=== PATIENT | female | born 1955 | race Caucasian/White ===

== ENCOUNTER 2021-01-02 12:32 | Outpatient (REF) | payer OTHER, SELFPAY ==
[2021-01-02 13:37] LABS: MANUAL DIFF FLAG NO
[2021-01-02 13:45] LABS: Basophils Absolute Auto 0.1 X10*3/uL (0.0-0.2); Basophils Percent Auto 1.2 % (0-2); Eosinophils Absolute Auto 0.1 X10*3/uL (0.0-0.4); Eosinophils Percent Auto 1.1 % (0-4); Hemoglobin 13.3 g/dl (12.0-16.0); Imm Gran Abs Auto 0.02 X10*3/uL (0.00-0.03); Imm Gran Pct Auto 0.3 % (0.0-0.4); Lymphocytes Absolute Auto 2.4 X10*3/uL (1.2-4.9); Lymphocytes Percent Auto 31.4 % (20-40); Mean Corpuscular HGB Conc 32.4 g/dl (31.0-35.0); Mean Corpuscular Hemoglobin 29.7 pg (27.0-33.0); Mean Corpuscular Volume 91.5 fL (80-98); Mean Platelet Volume 11.7 fL (9.4-12.3); Monocytes Absolute Auto 0.5 X10*3/uL (0.1-1.2); Monocytes Percent Auto 6.9 % (2-11); Neutrophils Absolute Auto 4.5 X10*3/uL (2.0-8.3); Neutrophils Percent Auto 59.1 % (45-73); Platelet Count 241 X10*3/uL (160-400); Red Blood Count 4.48 X10*6/uL (4.20-5.50); Red Cell Distribution Width 11.9 % (11.0-16.0); White Blood Count 7.5 X10*3/uL (4.8-10.8)
[2021-01-02 14:17] LABS: Alanine Aminotransferase 9 U/L (0-31); Alkaline Phosphatase 67 U/L (39-117); Anion Gap 14 (12-20); Aspartate Amino Transferase 16 U/L (5-31); Bilirubin Direct 0.3 mg/dL (0.0-0.5); Bilirubin Total 1.1 mg/dL (0.0-1.0); Blood Urea Nitrogen 16 mg/dL (9-16); Calcium 9.4 mg/dL (8.4-10.2); Carbon Dioxide 26 mmol/L (22-29); Chloride 105 mmol/L (96-108); Estimated Glomerular Filt Rate 59; Potassium 4.5 mmol/L (3.3-5.1); Sodium 140 mmol/L (135-145); Total Protein 7.3 g/dL (6.5-8.0)
[2021-01-02 14:38] LABS: TSH reflex Free T4 0.89 uIU/mL (0.32-4.0)
[2021-01-07 20:46] LABS: Immunoglobulin A 367 mg/dL (70-320)
[2021-01-09 12:21] LABS: Endomysial IgA Antibody Negative (Negative)
[2021-01-09 16:15] LABS: Transglutaminase Ab IgG <1.0 U/mL; Transglutaminase IgA <1.0 U/mL
[2021-01-09 16:21] LABS: Gliadin Deamidated IgA Ab 3.9 U/mL; Gliadin Deamidated IgG Ab <1.0 U/mL
== END 2021-01-02 12:33 | disposition home or self-care (01) ==
LOC: HO.10HDL 12:32
PROVIDERS: Internal Medicine; Visit Provider Dentist Oral and Maxillofacial Surgery
DX: R63.4 Abnormal weight loss (principal)
CPT/HCPCS: 36415; 80051; 80076; 82310; 82565; 82784; 83516; 84443; 84520; 85025; 86255; 86256

== ENCOUNTER 2021-01-23 08:47 | Outpatient (REF) | payer OTHER, SELFPAY ==
--- NOTE | ~2021-01-23 | US_ITS ---
EXAMINATION: US ABDOMEN COMPLETE CLINICAL INFORMATION: Abdominal discomfort. Weight loss. Anorexia. COMPARISON: None TECHNIQUE: Real-time imaging of the abdominal viscera. FINDINGS: PANCREAS: Normal. ABDOMINAL AORTA: The proximal, mid, and distal segments are normal in caliber. INFERIOR VENA CAVA: Visualized portions are normal. LIVER: The liver is normal in size. The liver contour is normal. Echotexture is slightly increased. No focal hepatic lesion. There is no intrahepatic biliary duct dilatation seen. GALLBLADDER: Normal. The gallbladder is physiologically distended without evidence of stones, sludge, polyps, wall thickening or pericholecystic fluid. COMMON BILE DUCT: Normal in caliber measuring 0.2 cm in diameter. RIGHT KIDNEY: Normal. No hydronephrosis. No renal calculi or focal parenchymal lesions. The kidney measures 10.0 cm in maximum dimension. LEFT KIDNEY: There is a 1.4 x 1.6 x 1.4 cm complex cyst in the upper pole with single septation. No hydronephrosis or renal calculi. The kidney measures 9.5 cm in maximum dimension. SPLEEN: Normal. The spleen measures 7.4 cm in maximum dimension. FREE FLUID: None. US/US abdomen complete IMPRESSION: Slightly echogenic liver probably representing fatty infiltration. 1.5 cm complex cyst in the upper pole of the left kidney.
== END 2021-01-23 08:48 | disposition home or self-care (01) ==
LOC: HO.US 08:47
PROVIDERS: PCP Internal Medicine; Visit Provider Internal Medicine
DX: R10.84 Generalized abdominal pain (principal); R63.4 Abnormal weight loss; R63.0 Anorexia
CPT/HCPCS: 76700

== ENCOUNTER 2021-01-27 07:30 | Day surgery (SDC) | payer OTHER, SELFPAY ==
[2021-01-21 09:56] VITALS: BMI 22.3
--- NOTE | 2021-01-23 14:00 | HO.ANESPROP2 ---
Documented by User: Chiqui Miller NP 01/23/21 14:00 HPI - Anesthesia Eval Consult details Narrative: 65yo F for Upper Endoscopy and Colonoscopy [facility] Past Medical History Medical History Hypothyroid Surgical History Surgical History H/O colonoscopy History of nasal surgery Social History Social History Patient Tobacco Use Status: Tobacco use Unknown Use of substances other than those prescribed or required for medical reasons: No Advance Directives Information Provided: Yes Advance Directives on File: No Meds Allergies Allergy/AdvReac Type Severity Reaction Status Date / Time No Known Allergies Allergy Unverified 12/07/19 15:19 Home Medications Medication Instructions Recorded Confirmed Last Taken Type cholecalciferol (vitamin D3) 25 25 mcg PO DAILY 01/20/21 01/20/21 Unknown History mcg (1,000 unit) capsule (Vitamin D3) cyanocobalamin (vitamin B-12) 100 100 mcg PO DAILY 01/20/21 01/20/21 Unknown History mcg tablet (Vitamin B-12) levothyroxine 88 mcg tablet 88 mcg PO DAILY 01/20/21 01/20/21 Unknown History Exam Exam Date and Time: January 23, 2021 1400 Height,Weight and Vital Signs: Height 5 ft 5 in Weight 60.781 kg Narrative Narrative: Laboratory Tests 01/02/21 01/02/21 12:40 12:40 WBC 7.5 Hgb 13.3 Hct 41.0 Plt Count 241 Sodium 140 Potassium 4.5 Chloride 105 Carbon Dioxide 26 BUN 16 Creatinine 0.95 Assessment and Plan Assessment Anesthesia Assessment: Chart Reviewed Documented by User: Fe Cleaning MD 01/27/21 08:00 [facility] Past Medical History Medical History Hypothyroid Surgical History Surgical History H/O colonoscopy History of nasal surgery History of Problems with Anesthesia: No Social History Social History Patient Tobacco Use Status: Tobacco use Unknown Use of substances other than those prescribed or required for medical reasons: No Advance Directives Information Provided: Yes Advance Directives on File: No Meds Allergies Allergy/AdvReac Type Severity Reaction Status Date / Time No Known Allergies Allergy Unverified 12/07/19 15:19 Home Medications Medication Instructions Recorded Confirmed Last Taken Type cholecalciferol (vitamin D3) 25 25 mcg PO DAILY 01/20/21 01/20/21 Unknown History mcg (1,000 unit) capsule (Vitamin D3) cyanocobalamin (vitamin B-12) 100 100 mcg PO DAILY 01/20/21 01/20/21 Unknown History mcg tablet (Vitamin B-12) levothyroxine 88 mcg tablet 88 mcg PO DAILY 01/20/21 01/20/21 Unknown History Exam Airway Mallampati Class: II TM Dist: >3cm Loose/Missing/Broken Teeth: No Heart: RRR Lungs: CTA Assessment and Plan Assessment Anesthesia Assessment: Anesthesia Plan Discussed Final Anesthetic Review History of Problems with Anesthesia: No NPO: Yes ASA Class: II Final Preanesthetic Review: Meds/Allgs Chart Reviewed, Consent Obtained/Reviewed and Anes Risks/Benef Reviewed Patient Risk: Low Procedure Risk: Intermediate Anesthetic Plan Anesthetic Plan: MAC: Disposition: Standard PACU
[2021-01-27 07:50] VITALS: BP 114/59; PULSE 82; RESP 16; TEMP 36.6; O2SAT 100
[2021-01-27] MEDS: Lactated Ringers 1,000 ML 100 ML IVCONT (08:04)
[2021-01-27 09:50] VITALS: BP 88/38; PULSE 86; RESP 16; TEMP 36.7; O2SAT 98
--- NOTE | 2021-01-27 09:53 | P.BOP_ITS ---
Brief Operative Note Date of Service: 01/27/21 Pre-op diagnosis: Anorexia, Weight loss, Change in bowels, Screening Post-op diagnosis: other (Hiatal hernia, Colon polyp) Procedure: EGD with biopsy, Colonoscopy to the cecum with cold snare poly pectomy(not recovered) and biopsies Surgeon: Sebastian Brand Anesthesia: MAC Was an Cosmetics Supervisor used for this Procedure?: No Estimated blood loss (mL): 3.0 Pathology: other (A. Descending duodenum B. Gastric antrum C. Ascending colon D. Descending colon) Condition: stable Disposition: PACU
[2021-01-27 10:05] VITALS: BP 92/47; PULSE 68; RESP 16; O2SAT 98
[2021-01-27 10:20] VITALS: BP 94/54; PULSE 86; RESP 16; O2SAT 100
--- NOTE | 2021-01-27 14:56 | OP_ITS ---
SURGEON: Sebastian Brand MD INDICATIONS: The patient presents for evaluation of colorectal cancer screening, anorexia, weight loss, and change in bowel habits. Full consent has been obtained from her for this, including risks of bleeding and perforation. PREOPERATIVE DIAGNOSIS: POSTOPERATIVE DIAGNOSIS: PROCEDURE PERFORMED: Esophagogastroduodenoscopy with biopsies, and colonoscopy to the cecum with snare polypectomy, and biopsies. ESTIMATED BLOOD LOSS: COMPLICATIONS: ANESTHESIA: Monitored anesthesia care. ASSISTANTS: SPECIMENS: PREOPERATIVE DIAGNOSES: Colorectal cancer screening, anorexia, change in bowel habits and weight loss. POSTOPERATIVE DIAGNOSES: Colorectal cancer screening, anorexia, change in bowel habits and weight loss, small hiatal hernia, minimal gastritis, rule out celiac disease, rule out microscopic colitis, colon polyp, diverticulosis, and internal hemorrhoids. DESCRIPTION OF PROCEDURE: The patient was placed in the left lateral decubitus position. The Olympus video gastroscope was passed in the posterior oropharynx and upper esophagus under direct vision. The scope was passed slowly into the distal esophagus. The gastroesophageal junction appeared normal at 35 cm. There was no sign of any esophagitis nor Arevalo's esophagus. There was a small hiatal hernia. The scope was advanced to pylorus and duodenum was cannulated to the descending portion. The duodenum including the bulb appeared normal without mass or ulceration. Biopsies were obtained from the second and third portions of duodenum. The scope was withdrawn back in the stomach. The gastric antrum and body had some minimal areas of erythema, but no erosions or ulceration. There was good peristalsis. Biopsies were obtained from the gastric antrum. Scope was retroflexed visualizing the proximal stomach carefully, which appeared normal, without any sign of mass or ulceration. The scope was straightened out and withdrawn back into the esophagus. The esophageal mucosa appeared normal. The scope was withdrawn from the patient. She was turned around for the colonoscopy. The digital rectal exam revealed no abnormalities. The Olympus video pediatric colonoscope was entered into the rectum and advanced easily to the cecum. Once in the cecum, I did identify normal-appearing cecal pouch with appendiceal orifice and a normal-appearing ileocecal valve. The entire cecum and ileocecal valve appeared normal. There was transillumination of light deep in the right lower quadrant. The scope was slowly withdrawn assessing all mucosal surfaces carefully. Preparation was excellent. In the ascending colon, was a flat approximately 5 mm grossly adenomatous polyp, which was snared with the cold snare, but not recovered. The polypectomy site appeared clean, without any sign of residual polyp nor any significant bleeding. I did not visualize any sign of other polyps, colitis, nor angiodysplasia. Random biopsies were obtained in the ascending and descending colon to rule out microscopic colitis. There was a mild amount of sigmoid diverticulosis. In the rectum, scope was retroflexed visualizing small internal hemorrhoids, but no other pathology. The rectal mucosa appeared normal. The scope was straightened out and withdrawn from the patient. She tolerated the procedure well and was returned to recovery area in stable condition. IMPRESSION: 1. Small hiatal hernia. 2. Mild gastritis. 3. Rule out celiac disease. 4. Colon polyp, status post cold snare polypectomy. 5. Rule out microscopic colitis. 6. Diverticulosis. 7. Internal hemorrhoids. PLAN: The results of biopsy will be checked. I would recommend a repeat colonoscopy in 5 years for further screening and surveillance given the removal of today's polyp given its gross appearance. She was advised not to use any aspirin and NSAIDs for 1 week. She was advised to see me in 2 to 3 months for followup. She did have recent studies including thyroid studies, CBC, LFTs, chemistries, and celiac disease testing, which were all nonrevealing. Recent abdominal ultrasound was also negative for gallstones or any other pathology. This has been discussed with her . MD RADHA Wallace/GLADYS / [id number]
== END 2021-01-27 10:48 | disposition home or self-care (01) ==
PROVIDERS: PCP Internal Medicine; Visit Provider Internal Medicine
PROC: (CPT 45385; principal; 2021-01-27 08:40)
DX: Z12.11 Encounter for screening for malignant neoplasm of colon (principal); K63.5 Polyp of colon; R19.4 Change in bowel habit; K57.30 Diverticulosis of large intestine without perforation or abscess without bleeding; K64.8 Other hemorrhoids; R63.4 Abnormal weight loss; R63.0 Anorexia; K29.60 Other gastritis without bleeding; K44.9 Diaphragmatic hernia without obstruction or gangrene; E03.9 Hypothyroidism, unspecified; R53.83 Other fatigue; Z79.899 Other long term (current) drug therapy
CPT/HCPCS: 45385; 45380; 43239; 88305; 88342; J3010